=== PATIENT | male | born 1965 | race Caucasian/White ===

== ENCOUNTER 2024-05-24 08:50 | Outpatient (REF) | payer BC, SELFPAY ==
[2024-05-24 13:20] LABS: MANUAL DIFF FLAG NO
[2024-05-24 13:28] LABS: Basophils Percent Auto 0.4 % (0-2); Eosinophils Absolute Auto 0.1 X10*3/uL (0.0-0.4); Eosinophils Percent Auto 1.6 % (0-4); Hematocrit 45.2 % (42.0-52.0); Hemoglobin 14.2 g/dl (14.0-18.0); Imm Gran Abs Auto 0.02 X10*3/uL (0.00-0.03); Imm Gran Pct Auto 0.2 % (0.0-0.4); Lymphocytes Absolute Auto 1.8 X10*3/uL (1.2-4.9); Lymphocytes Percent Auto 22.2 % (20-40); Mean Corpuscular HGB Conc 31.4 g/dl (31.0-36.0); Mean Corpuscular Hemoglobin 28.4 pg (27.0-33.0); Mean Corpuscular Volume 90.4 fL (80.0-98.0); Mean Platelet Volume 11.4 fL (9.4-12.4); Monocytes Absolute Auto 0.5 X10*3/uL (0.1-1.2); Monocytes Percent Auto 6.4 % (2-11); Neutrophils Absolute Auto 5.6 x10*3/uL (2.0-8.3); Neutrophils Percent Auto 69.2 % (45-73); Platelet Count 209 X10*3/uL (160-400); Red Cell Distribution Width 13.4 % (11.0-16.0)
[2024-05-24 13:51] LABS: Appearance Urine Clear; Color Urine Yellow; Glucose Urine UA Negative (Negative); Leukocyte Esterase Urine Negative (Negative); Nitrite Urine Negative (Negative); Specific Gravity - Urine 1.015 (1.005-1.025); Urine Blood Negative (Negative); Urine Ketones Negative (Negative); Urine Protein Negative (Neg-Trace)
[2024-05-24 13:54] LABS: Bacteria Urine None Seen (None Seen); Hyaline Casts Urine 0-2 /LPF (0-2); RBC Urine 0-2 /HPF (0-2); Squamous Epithelial Cell Urine 0-2 /HPF (0-2); WBC Urine 0-5 /HPF (0-5)
[2024-05-24 13:57] LABS: Alanine Aminotransferase 40 U/L (0-40); Albumin Level 4.1 g/dL (3.5-5.0); Alkaline Phosphatase 127 U/L (39-117); Anion Gap 10 (12-20); Aspartate Amino Transferase 33 U/L (5-37); Bilirubin Total 0.3 mg/dL (0.0-1.0); Blood Urea Nitrogen 19 mg/dL (9-16); Calcium 9.8 mg/dL (8.4-10.2); Carbon Dioxide 28 mmol/L (22-29); Chloride 106 mmol/L (96-108); Cholesterol 168 mg/dL (<200); Estimated Glomerular Filt Rate > 60; Glucose Random 100 mg/dL (60-115); HDL Cholesterol 41 mg/dL (>40); LDL Cholesterol Calculated 117 mg/dL (<100); Potassium 5.1 mmol/L (3.3-5.1); Sodium 139 mmol/L (135-145); Total Protein 7.4 g/dL (6.5-8.0); Triglycerides 54 mg/dL (<150)
== END 2024-05-24 08:51 | disposition home or self-care (01) ==
LOC: HO.HMGCLDS 08:50
PROVIDERS: PCP Internal Medicine; Visit Provider Internal Medicine
DX: Z00.00 Encounter for general adult medical examination without abnormal findings (principal); M72.2 Plantar fascial fibromatosis; F17.210 Nicotine dependence, cigarettes, uncomplicated; Z12.5 Encounter for screening for malignant neoplasm of prostate
CPT/HCPCS: 36415; 80053; 80061; 81001; 84153; 85025; 96127

== ENCOUNTER 2024-05-24 08:50 | Outpatient (AMB) | payer BC, SELFPAY ==
--- NOTE | 2024-05-24 09:02 | A.OFFPC_ITS ---
Vital Signs 05/24/24 09:03 Height 6 ft 2 in Weight 214 lb BMI 27.5 BP 132/80 Blood Pressure Location Lt brachial Position Sitting Pulse 80 Pulse Source Pulse Oximeter Temp 98.3 F Temp Source Oral Pulse Oximetry (%) 97 Intake Visit Reasons: New patient visit Intake Note: pt is here to est care as a new patient. Soft Work Cigar Machine Operator Required: No Accompanied by: Self / Same As Patient Allergies No Known Allergies Allergy (Verified 05/24/24 09:03) Medication List - Last Reconciled 05/24/24 by Ana Lilia Montoya MD buprenorphine-naloxone 8-2 mg film sublingual DAILY Tobacco use date assessed: 05/24/24 Dental Screening Dental Screen Date: 05/24/24 Did you have a dental visit in the last 12 months?: Yes Did you have a dental problem in the last 6 months where you did not have access to dental care?: No Was dental information given to patient?: Patient has dentist HPI New patient visit HPI Details Pt presents for ADMINISTRATION MANAGER PE. Pt c/o left foot chronic plantar fasciitis since January 2024. . Patient was seen by mh teacher had cortisone injection took meloxicam which caused stomach upset. Patient complains clear discharge from rectum after bowel movement. He denies constipation, diarrhea, hematochezia, melena. patient never had colonoscopy. he had negative Cologuard 2 years ago [facility] Surgical History S/P hernia repair History of surgery on lower extremity Family History Mother No problems noted. Father No problems noted. Social History Housing: House Alcohol intake: current Alcohol intake frequency: holidays/special occasions only Patient Tobacco Use Status: Current everyday Tobacco user Cigarettes Per Day: 10 Years Smoked: 2015 Packs per year/per ci,007.50 e-Cigarette/Vaping Use: Never Used Use of substances other than those prescribed or required for medical reasons: No service: No Current occupational status: employed Current occupation: machinest Current occupational exposures/hazards: No Cognitive needs: No Hearing needs: No Vision needs: Yes Questionnaire PHQ-9 Over the last 2 weeks, how often have you been bothered by any of the following problems? 1. Little interest or pleasure in doing things: not at all 2. Feeling down, depressed, or hopeless: not at all 3. Trouble falling or staying asleep, or sleeping too much: not at all 4. Feeling tired or having little energy: not at all 5. Poor appetite or overeating: not at all 6. Feeling bad about yourself - or that you are a failure or have let yourself or your family down: not at all 7. Trouble concentrating on things, such as reading the newspaper or watching television: not at all 8. Moving or speaking so slowly that other people could have noticed. Or the opposite - being so fidgety or restless that you have been moving around a lot more than usual: not at all 9. Thoughts that you would be better off or of hurting yourself in some way: not at all Total score: 0 Depression Screening Interpretation: Negative Depression Screening Done: Yes 60259 - PHQ-9 Billing: Yes Source: Developed by Drs. Tomy Alejandro, Liza Grove, Priyank Stevenson and colleagues, with an educational brennan from [employer] Thrive Questionnaire Date Thrive assessed: 05/24/24 I am a: Patient What is your living situation today?: I have a steady place to live Within the past 12 months, did the food you bought not last and you didn't have the money to get more?: Never true Within the past 12 months, did you worry whether your food would run out before you got money to buy more?: Never true Do you have trouble paying for medicines?: No Do you have trouble getting transportation to medical appointments?: No Do you have trouble paying your heating and electricity bill?: No Do you have trouble taking care of your child, family member or friend?: No Do you have trouble with day-to-day activities such as bathing, preparing meals, shopping, managing finances, etc.?: No Are you currently unemployed and looking for a job?: No Are you interested in more education?: No Please select the resources that you would like help with: None Currently or been in a relationship where the following occur: No concerns reported THRIVE Score: 0 AUDIT C Alcohol Use Questionnaire (AUDIT-C) 1. How often do you have a drink containing alcohol?: Monthly or less 2. How many drinks containing alcohol do you have on a typical day when you are drinking?: 1 or 2 3. How often do you have six or more drinks on one occasion?: Never Total Score: 1 Score Reviewed/Action Taken: Yes LISSY-7 AMB Questionnaire LISSY-7 Date LISSY - 7 assessed: 05/24/24 Feeling nervous, anxious, or on edge: 0 = Not at all Not being able to stop or control worryin = Not at all Worrying too much about different things: 0 = Not at all Trouble relaxin = Not at all Being so restless that it is hard to sit still: 0 = Not at all Becoming easily annoyed or irritable: 0 = Not at all Feeling afraid as if something awful might happen: 0 = Not at all Total LISSY-7 score (0-4 normal; 5-9 mild; 10-14 moderate; 15-21 severe): 0 Source: Developed by Drs. Tomy Alejandro, Liza Grove, Priyank Stevenson and colleagues, with an educational brennan from [employer] LISSY-7 Assessment Billing LISSY-7 Assessment Tool: LISSY-7 Assessment 16570 Review of Systems Const All systems reviewed & are unremarkable except as noted in HPI and below Eyes Reports no additional complaints ENT Reports no additional complaints Card Reports no additional complaints Resp Reports no additional complaints GI Reports no additional complaints Physical exam (Primary Care) Vital Signs: Last Vital Signs Temp 98.3 F 05/24/24 09:03 Pulse 80 05/24/24 09:03 BP 132/80 05/24/24 09:03 Pulse Ox 97 05/24/24 09:03 BMI result Body Mass Index 27.5 Tobacco/Smoking Status: Tobacco use Status Tobacco use date assessed 05/24/24 05/24/24 09:14 Patient Tobacco Use Status Current everyday Tobacco 05/24/24 09:14 e-Cigarette/Vaping Use Never Used 05/24/24 09:14 PHQ-9: PHQ-9 Score PHQ-9: Total score 0 05/24/24 09:14 Depression Screening Interpretation: Negative Thrive Assessment: Date of Thrive Assessment Date Thrive assessed 05/24/24 05/24/24 09:14 Currently or been in a relationship where the following occur: No concerns reported Const General: no acute distress HENMT Head: Yes normal to inspection Ears: hearing grossly normal bilaterally Face and sinus: Yes normal facial exam Mouth: Normal oral and palatal mucosa present Throat: Yes posterior oropharynx normal Eyes General: appearance normal, both eyes and all related structures Neck Neck: Yes no lymphadenopathy and Yes supple Resp Effort & Inspection: normal respiratory effort Auscultation: clear to auscultation bilaterally Cardio Rhythm: regular rhythm Heart sounds: S1 normal heart sound present and S2 normal heart sound present GI Inspection: Yes normal to inspection Palpation (GI): Soft to palpation Percussion: Yes normal to percussion Auscultation: normal bowel sounds Coding Level of Care Code New Pt Prev Care 40-64y(45617) Diagnoses Annual physical exam Z. Plantar fascia syndrome M72.2 Smoker F17.200 Additional Codes LISSY-7 Assessment Billing - LISSY-7 Assessment Tool: LISSY-7 Assessment 06728 ([id number]) PHQ-9 - 58614 - PHQ-9 Billing: Yes ([id number]) Assessment & Plan Assessment & Plan (1) Annual physical exam: Code(s): Z00. - Encounter for general adult medical examination without abnormal findings Category: Medical Plan: Well-balanced diet regular physical activity discussed with the patient he will have a fasting blood work today. Patient will be referred to GI for colonoscopy. He was advised to increase fiber intake to prevent constipation (2) Plantar fascia syndrome: Comment: left foot Code(s): M72.2 - Plantar fascial fibromatosis Category: Medical Plan: Patient was advised to continue stretching exercises and wear a shoe insert, follow-up with mh teacher as needed (3) Smoker: Comment: Half a pack-a-day, trying to quit Code(s): F17.200 - Nicotine dependence, unspecified, uncomplicated Category: Social Hx Plan: Tobacco quitting discussed with the patient Orders: Orders Lipid Panel Today Z00.00 - Encounter for general adult medical examination without abnormal findings UA w Microscopic Today Z00.00 - Encounter for general adult medical examination without abnormal findings Comprehensive Met. Panel Today Z00.00 - Encounter for general adult medical examination without abnormal findings Complete Blood Count Auto Diff Today Z00.00 - Encounter for general adult medical examination without abnormal findings PSA,Total (Free>4and<10) Today Z00.00 - Encounter for general adult medical examination without abnormal findings
[2024-05-24 09:03] VITALS: BP 132/80; PULSE 80; TEMP 36.8; O2SAT 97; BMI 27.5
--- OUTSIDE RECORDS SUMMARY | 2024-05-24 09:12 | XMS_ITS ---
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 [address] [place] [address] * true * Date:? Generated for Jeannette sandoval/Christiano/eTransmitting on:?05/24/2024 09:12 AM EST
--- OUTSIDE RECORDS SUMMARY | 2024-05-24 09:12 | XMS_ITS ---
Author Organization [facility] Address [address] [place] [address] Care Team Providers Care Punching Machine Operator Name Role Phone Nell Domínguez Primary Care Provider Clifton Garcia Unavailable [phone] REASON FOR VISIT OVER THE ROAD DRIVER Encounters Encounter Location Date Provider Diagnosis [facility] [address] [place] [address] 11/03/2023 Clifton Quijano Plan Of Treatment No Information Progress Notes * Nic HEATONOB:1965 ( 58 yo M)Acc No.[id number]:11/03/2023 Patient:?Camilo eHaton :1965???Age:58 Y???Sex:Male Address:[address] [place] [address] [place] [address] * true * Date:? Generated for Jeannette sandoval/Christiano/eTransmitting on:?05/24/2024 09:12 AM EST
--- OUTSIDE RECORDS SUMMARY | 2024-05-24 09:12 | XMS_ITS | Patient Health Record ---
Author Organization [facility] Address [address] [place] [address] Care Team Providers Care Ceramics Machine Operator Name Role Phone Nell Domínguez Primary Care Provider Clifton Garcia Unavailable [phone] Reason For Referral No Information Encounters Encounter Location Date Provider Diagnosis [facility] [address] [place] [address] 11/03/2023 Clifton Quijano [facility] [address] [place] [address] 12/15/2023 Clifton Quijano Plan Of Treatment No Information Insurance Providers Payer Name Payer Address Payer Phone Subscriber Number Group Number Insured Name Patient Relationship to Insured Coverage Start Date Coverage End Date [facility] [employer] [address] [place] [address] [phone] [id number] Cmailo Steele Self - patient is the insured
--- OUTSIDE RECORDS SUMMARY | 2024-05-24 09:13 | XMS_ITS ---
Author Organization [facility] Address [address] [place] [address] Care Team Providers Care Physiognomist Name Role Phone Nell Domínguez Primary Care Provider Clifton Garcia Unavailable [phone] Encounters Encounter Location Date Provider Diagnosis [facility] [address] [place] [address] 02/20/2024 Clifton Quijano Plan Of Treatment No Information Progress Notes * HEATONMarty TONGumeshnDOB:1965 ( 58 yo M)Acc No.[id number]:02/20/2024 Progress Notes Patient:?Camilo HEATON Provider:?Clifton Quijano DPM :1965???Age:58 Y???Sex:Male Herbert e:02/20/2024 Address:[address] [place] [address] [address] [facility] Pcp:Nell Domínguez Subjective: * Chief Complaints: * ??? * Medical History:? Objective: * Vitals:? Assessment: Plan: * Treatment: * Images: * The named appointment provid er may or may not be the originator of this progress note, and it is not deemed complete until electronically signed by the appointment provider. Sign off status: Pending * Provider:?Clifton Quijano DPM Date:?2023 Generated for Jeannette sandoval/Christiano/Bel on:?05/24/2024 09:12 AM EST
== END 2024-05-24 10:30 | disposition home or self-care (01) ==
PROVIDERS: PCP Internal Medicine; Visit Provider Internal Medicine
DX: Z00.00 Encounter for general adult medical examination without abnormal findings (principal); M72.2 Plantar fascial fibromatosis; F17.200 Nicotine dependence, unspecified, uncomplicated

== ENCOUNTER 2024-06-08 08:04 | Outpatient (REF) | payer BC, SELFPAY ==
[2024-06-08 12:29] LABS: Alanine Aminotransferase 54 U/L (0-40); Albumin Level 4.1 g/dL (3.5-5.0); Alkaline Phosphatase 110 U/L (39-117); Aspartate Amino Transferase 32 U/L (5-37); Bilirubin Direct 0.2 mg/dL (0.0-0.5); Bilirubin Total 0.4 mg/dL (0.0-1.0); Gamma Glutamyl Transpeptidase 42 U/L (11-51); Total Protein 7.2 g/dL (6.5-8.0)
[2024-06-08 12:48] LABS: HBS Num1 0.97 mIU/mL (0-7.99); HBc Num1 0.05 S/CO (0.00-0.79); HBsAGNum1 0.39 S/CO (0.00-0.99); Hepatitis B Core Antibody Nonreactive (Nonreactive); Hepatitis B Surface Antigen Negative (Negative); ~HepC Num1 0.15 S/CO (0.00-0.79); ~Hepatitis B Surface Antibody NONREACTIVE (Nonreactive); ~Hepatitis C Antibody Nonreactive (Nonreactive)
== END 2024-06-08 08:05 | disposition home or self-care (01) ==
LOC: HO.HMGCLDS 08:04
PROVIDERS: PCP Internal Medicine; Visit Provider Internal Medicine
DX: R79.89 Other specified abnormal findings of blood chemistry (principal)
CPT/HCPCS: 36415; 80076; 82977; 86704; 86706; 86803; 87340

== ENCOUNTER 2024-09-27 15:05 | Outpatient (AMB) | payer BC, SELFPAY ==
--- NOTE | 2024-09-27 15:10 | A.OFFVIS_ITS ---
Vital Signs 09/27/24 15:12 Height 6 ft 2 in Weight 207 lb 3.752 oz BMI 26.6 BP 146/87 H Blood Pressure Location Lt brachial Position Sitting Pulse 76 Intake Visit Reasons: [place] screening. R/S x1 Intake Note: Camilo presents in the office as a new patient for colonoscopy screening. CC: issue with his stomach and states that he has been having some constipation. States that when he passes gas he was a phlegm like substance that comes out. Pain where he has his operation in the umibilical region. [employer] Required: No Allergies No Known Allergies Allergy (Verified 09/27/24 15:12) Medication List - Last Reconciled 09/27/24 by Lashell Thakur CNP bisacodyl 5 mg PO ONCE 1 day buprenorphine-naloxone 4-1 mg 1 film sublingual DAILY polyethylene glycol 3350 (Miralax) 238 grams PO ONCE HPI HPI [place] screening. R/S x1: Details: Patient is a 58-year-old male with PMH of nicotine dependence, open opioid use disorder on Suboxone managed by [facility]. Referred by PCP for pre colonosco py screening. This will be Camilo's first colonoscopy, he had a negative cologuard two years ago per PCP note. Camilo reports experiencing abdominal pain around the site of a hernia repair surgery from 4-5 years ago. The pain has recently become tender, noticed a few months ago. He is also experiencing constipation, which he has been trying to manage with Metamucil, without consistent success. Camilo describes a change in bowel habits over the last 6-7 months, with a pattern of needing to pass gas, which is often wet and foul-smelling, followed by fragmented bowel movements. Camilo also reports rare instances of blood in stools, mainly noticed while wiping and describes the blood as normal blood red in color, possibly due to pushing. He denies nausea, vomiting, heartburn, or trouble swallowing. Camilo has noted a slight unexplained weight loss of around 7 pounds over the last four months, possibly attributed to the hot weather at work. Additionally, he had elevated liver function tests in recent months, which normalized upon rechecking. Patient denies: fever/chills, appetite changes, pyrosis, regurgitation or dysphasia. Social History: Diet: Eats yogurt in the morning, sandwich for lunch, and sensible dinners at home. Previously tried probiotics. Tobacco: Smokes half a pack per day Alcohol: Does not consume alcohol. Drug Use: Does not use recreational drugs but grows marijuana. Rx'd Suboxone. 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 -family hx as below -denies personal hx of CA -denies significant cardiopulmonary history -tolerated anesthesia in the past without difficulty. [facility] Medical History (Updated 09/27/24 @ 16:10 by Lashell Thakur CNP) Change in stool habits Colon cancer screening Surgical History S/P hernia repair History of surgery on lower extremity Family History Mother No problems noted. Father No problems noted. Social History Housing: House Alcohol intake: current Alcohol intake frequency: holidays/special occasions only Patient Tobacco Use Status: Current everyday Tobacco user Cigarettes Per Day: 10 Years Smoked: 2014 e-Cigarette/Vaping Use: Never Used service: No Current occupational status: employed Current occupation: machinest Current occupational exposures/hazards: No Cognitive needs: No Hearing needs: No Vision needs: Yes Review of Systems Const Reports as per HPI ENT Reports as per HPI Card Reports as per HPI Resp Reports as per HPI GI Reports as per HPI Reports as per HPI Physical Exam Vital Signs: Last Vital Signs Pulse 76 09/27/24 15:12 BP 146/87 H 09/27/24 15:12 BMI result Body Mass Index 26.6 Const General: healthy appearing, no acute distress and well developed Nutritional Appearance: well nourished Orientation/consciousness: patient oriented x3 HEENT Head: Yes normal to inspection, Yes normocephalic and Yes atraumatic Face and sinus: Yes normal facial exam Eyes General: appearance normal, both eyes and all related structures Neck Neck: Yes normal visual inspection Resp Effort & Inspection: normal respiratory effort, able to speak in complete sentences, no tracheal deviation and symmetric chest movement Cardio Jugular venous distension: no JVD Neuro General: patient oriented x3 Gait exam (Neuro): Normal gait present Psych Appearance: grossly normal Mental Status: mental status grossly normal Speech and movement: Normal speech and movement present Affect: normal affect Attitude: cooperative Thought process: Normal thought process present Thought content: Normal thought content present Insight: Good insight present (Psych) Judgement: Good judgement present (Psych) Assessment & Plan Assessment & Plan (1) Colon cancer screening: Code(s): Z12.11 - Encounter for screening for malignant neoplasm of colon Category: Medical Plan: Negative Cologuard 2 years ago. Intermittent rectal bleeding and recent stool change. Plan for index screening colonoscopy Medications: -prescriptions for laxative tablets and MiraLax sent to pharmacy; instructions for Gatorade purchase and clear liquid diet given.. Patient educated on scheduling process, procedure preparation, including avoiding certain foods and ensuring clear liquid intake Advised on necessity for ride post-procedure due to sedation. (2) Change in stool habits: Code(s): R19.4 - Change in bowel habit Category: Medical Plan: Chronic constipation with inadequate response to dietary fiber supplements and recent changes in bowel habits. 3.2% Wt loss since 05/2024. Additional Tests: Stool testing to rule out inflammatory causes. Will check thyroid levels. Monitor weight Medications: -Discontinue Metamucil -Start Miralax oral daily and a stool softener (Docusate) at bedtime as needed. Patient to use [id number]-[id number] supply his has on hand Reinforced lifestyle modifications to promote regularity: -higher fiber diet, examples provided -adequate hydration with water -150 minutes of moderate intensity exercise per week (3) Elevated LFTs: Code(s): R79.89 - Other specified abnormal findings of blood chemistry Category: Medical Plan: Slightly elevated LFTs on 06/2024 labs Additional Tests: Repeat fasting labs Plan Follow-up after colonoscopy or sooner as needed Time: I spent a total of 30 minutes on the date of encounter which includes: Preparing to see the patient (reviewed previous documentation, test results and medical history) Performing a medically appropriate exam and/or evaluation Ordering medications, tests, and procedures Documenting clinical information in the health record Orders: Orders Fecal Fat Qualitative 09/27/24 Z12.11 - Encounter for screening for malignant neoplasm of colon C Reactive Protein 09/27/24 R19.4 - Change in bowel habit Calprotectin, Fecal 09/27/24 R19.4 - Change in bowel habit Comprehensive Lloyd. Panel Fast 06/27/25 R79.89 - Other specified abnormal findings of blood chemistry TSH reflex Free T4 09/27/24 R19.4 - Change in bowel habit Medications: New bisacodyl Take four tablets once for 1 day per colonoscopy instructions 5 mg PO ONCE 4 tabs 0RF 1 day polyethylene glycol 3350 (Miralax) per colonoscopy prep instructions 238 grams PO ONCE 238 grams 0RF Coding Level of Care Code New Pt New Pt Level 3 (29393) Patient Type New Diagnoses Colon cancer screening Z12.11 Change in stool habits R19.4 Elevated LFTs R79.89
[2024-09-27 15:12] VITALS: BP 146/87; PULSE 76; BMI 26.6
--- OUTSIDE RECORDS SUMMARY | 2024-09-27 15:14 | XMS_ITS | Patient Health Record ---
Author Organization [facility] Address [address] [place] [address] Care Team Providers Care Drafter Landscape Name Role Phone Nell Domínguez Primary Care Provider Clifton Garcia Unavailable [phone] Reason For Referral No Information Encounters Encounter Location Date Provider Diagnosis [facility] [address] [place] [address] 11/03/2023 Clifton Quijano [facility] [address] [place] [address] 12/15/2023 Clifton Quijano Plan Of Treatment No Information Insurance Providers Payer Name Payer Address Payer Phone Subscriber Number Group Number Insured Name Patient Relationship to Insured Coverage Start Date Coverage End Date [facility] All Others [address] [place] [address] [id number] 1 Camilo Steele Self - patient is the insured
== END 2024-09-27 16:31 | disposition home or self-care (01) ==
LOC: HO.HGI 15:06
PROVIDERS: PCP Internal Medicine; Visit Provider Nurse Practitioner Family
DX: Z01.818 Encounter for other preprocedural examination (principal); Z12.11 Encounter for screening for malignant neoplasm of colon; R19.4 Change in bowel habit; R79.89 Other specified abnormal findings of blood chemistry
CPT/HCPCS: S0285

== ENCOUNTER 2024-10-12 07:45 | Outpatient (REF) | payer BC, SELFPAY ==
[2024-10-12 12:02] LABS: Alanine Aminotransferase 27 U/L (0-40); Albumin Level 4.2 g/dL (3.5-5.0); Alkaline Phosphatase 97 U/L (39-117); Anion Gap 9 (12-20); Aspartate Amino Transferase 26 U/L (5-37); Blood Urea Nitrogen 17 mg/dL (9-16); Calcium 9.3 mg/dL (8.4-10.2); Carbon Dioxide 28 mmol/L (22-29); Chloride 105 mmol/L (96-108); Estimated Glomerular Filt Rate > 60; Potassium 5.3 mmol/L (3.3-5.1); Sodium 137 mmol/L (135-145); Total Protein 6.6 g/dL (6.5-8.0)
== END 2024-10-12 07:46 | disposition home or self-care (01) ==
LOC: HO.HMGCLDS 07:45
PROVIDERS: PCP Internal Medicine; Visit Provider Nurse Practitioner Family
DX: R79.89 Other specified abnormal findings of blood chemistry (principal); R19.4 Change in bowel habit
CPT/HCPCS: 36415; 80053; 84443; 86140

== ENCOUNTER 2024-10-15 04:15 | Outpatient (REF) | payer BC, SELFPAY ==
--- OUTSIDE RECORDS SUMMARY | 2024-10-15 16:14 | XMS_ITS | Patient Health Record ---
Author Organization [facility] Address [address] [place] [address] Care Team Providers Care Clinical Research Monitor Name Role Phone Nell Domínguez Primary Care Provider Clifton Garcia Unavailable [phone] Reason For Referral No Information Encounters Encounter Location Date Provider Diagnosis [facility] [address] [place] [address] 11/03/2023 Clifton Quijano [facility] [address] [place] [address] 12/15/2023 Clifton Quijano Plan Of Treatment No Information Insurance Providers Payer Name Payer Address Payer Phone Subscriber Number Group Number Insured Name Patient Relationship to Insured Coverage Start Date Coverage End Date [facility] All Others [address] [place] [address] [phone] [id number] 1 Camilo Steele Self - patient is the insured
[2024-10-20 18:43] LABS: Calprotectin, Fecal 666 mcg/g
== END 2024-10-15 04:16 | disposition home or self-care (01) ==
LOC: HO.HMGCLNP 04:15
PROVIDERS: PCP Internal Medicine; Visit Provider Nurse Practitioner Family
DX: Z12.11 Encounter for screening for malignant neoplasm of colon (principal); R19.4 Change in bowel habit
CPT/HCPCS: 82705; 83993

== ENCOUNTER 2024-11-16 06:42 | Outpatient (REF) | payer BC, SELFPAY ==
[2024-11-16 11:52] LABS: Anion Gap 12 (12-20); Blood Urea Nitrogen 17 mg/dL (9-16); Calcium 9.2 mg/dL (8.4-10.2); Carbon Dioxide 26 mmol/L (22-29); Chloride 106 mmol/L (96-108); Estimated Glomerular Filt Rate > 60; Potassium 5.1 mmol/L (3.3-5.1); Sodium 139 mmol/L (135-145)
== END 2024-11-16 06:43 | disposition home or self-care (01) ==
LOC: HO.HMGCLDS 06:42
PROVIDERS: PCP Internal Medicine; Visit Provider Nurse Practitioner Family
DX: Z01.89 Encounter for other specified special examinations (principal)
CPT/HCPCS: 36415; 80048

== ENCOUNTER 2024-12-03 11:41 | Outpatient (REF) | payer BC, SELFPAY ==
--- NOTE | ~2024-12-03 | CT_ITS ---
CLINICAL HISTORY: R19.5 - Other fecal abnormalities --- Additional Notes or Special Instructions: eval for evidence of IBDIntermittent rectal bleeding and stool change w chronic constipation, evaluate for irritable bowel disease Exam: CT enterography with IV contrast Comparison: None Findings: Mild bibasilar dependent atelectasis. Stomach, small bowel and appendix are unremarkable. Diffuse edematous mural thickening with laminated enhancement of the rectum, mesorectal fatty stranding, several prominent spherical mesorectal lymph nodes up to 8 mm, small amount of liquid stool in the rectum, no upstream bowel dilatation to suggest obstruction. Mild diverticulosis sigmoid, no acute diverticulitis. Prominent inspissated stool from cecum to the descending colon, no mural thickenin. Scattered too small to characterize hypodensities in the liver, patent hepatic and portal veins. Punctate calcification of the gallbladder anterior wall. No convincing cholelithiasis, no acute inflammation. Spleen, pancreas, adrenal glands, kidneys, ureters, bladder, reproductive organs are unremarkable. Too small to characterize hypodensities of the right kidney. Mild atherosclerotic disease. Nonaneurysmal aorta. No bulky lymph nodes. Multiple shotty retroperitoneal lymph nodes, likely reactive. No ascites or pneumoperitoneum. Presacral edema. Left proximal femur old fracture status post ORIF, no acute hardware complication. Mild degenerative changes of the lumbar spine and hips. Multilevel vertebral hemangiomas L3, L4, L5, L1 and T10. Osseous demineralization. Impression: 1. Diffuse rectal wall thickening, mesorectal fatty stranding and prominent mesorectal lymph nodes, most likely acute proctitis, could be infectious or inflammatory, recommend to ensure resolution and colonoscopy to exclude underlying lesion. 2. Additional ancillary findings. This document has been electronically signed by: Nerissa Chowdary MD on 12/04/2024 15:07:19
[2024-12-03] MEDS: iohexoL 350 MG/ML 100 ML INFUS..BTL IV (13:23)
[2024-12-03] MEDS: Sorbitol/Mannit/Xanth Imaging 500 ML LIQUID 1500 ML PO (13:23)
== END 2024-12-03 11:42 | disposition home or self-care (01) ==
LOC: HO.CT 11:41
PROVIDERS: PCP Internal Medicine; Visit Provider Nurse Practitioner Family
DX: R19.5 Other fecal abnormalities (principal)
CPT/HCPCS: 74177; Q9967

== ENCOUNTER → 2024-12-03 11:42 | Outpatient (BNV) | payer BC, SELFPAY | PROVIDERS: PCP Internal Medicine; Visit Provider Radiology Diagnostic Radiology | DX: R19.5 Other fecal abnormalities (principal); K62.89 Other specified diseases of anus and rectum; R59.0 Localized enlarged lymph nodes | CPT/HCPCS: 74177 ==

== ENCOUNTER 2024-12-07 10:00 | Outpatient (REF) | payer BC, SELFPAY ==
--- OUTSIDE RECORDS SUMMARY | 2024-02-20 09:00 | XMS_ITS ---
Author Organization [facility] Address [address] [place] [address] Care Team Providers Care Atg Architect Name Role Phone Nell Domínguez Primary Care Provider Unavailabl Clifton Brasher Unavailable [phone] Encounters Encounter Location Date Provider Diagnosis [address] [address] 02/20/2024 Clifton Quijano Plan Of Treatment No Information Progress Notes * Tre HEATONZanaOB:1965 ( 59 yo M)Acc No.[id number]:02/20/2024 Progress Notes Patient: Camilo OLIVARES Provider: Garrick Quijano DPM :1965 A ge:58 Y S ex:Male Date:02/20/2024 Address:[address], [place] Pcp:Nell Domínguez Subjective: * Chief Complaints: * [...] 04/21/2023 Generated for Jeannette sandoval/Christiano/Pilaritting on: 0 12/07/2024 11:13 AM EDT
--- OUTSIDE RECORDS SUMMARY | 2024-12-07 11:14 | XMS_ITS | Patient Health Record ---
Author Organization [facility] Address [address] [place] [address] Care Team Providers Care Base Wad Operator Adjuster Name Role Phone Nell Domínguez Primary Care Provider Clifton Garcia Unavailable [phone] Reason For Referral No Information Encounters Encounter Location Date Provider Diagnosis [facility] [address] [place] [address] 12/15/2023 Clifton Quijano Plan Of Treatment No Information Insurance Providers Payer Name Payer Address Payer Phone Subscriber Number Group Number Insured Name Patient Relationship to Insured Coverage Start Date Coverage End Date [facility] [address] [place] [address] [phone] [id number] 1 Camilo Steele Self - patient is the insured
[2024-12-07 21:16] LABS: CDiff Gene PCR NEGATIVE (Negative)
[2024-12-08 07:03] LABS: E. coli EAEC Not Detected (Not Detect.); E. coli EPEC Not Detected (Not Detect.); E. coli ETEC Not Detected (Not Detect.); E. coli STEC Not Detected (Not Detect.); Shigella sp./EIEC Not Detected (Not Detect.)
== END 2024-12-07 10:01 | disposition home or self-care (01) ==
LOC: HO.HMGCLNP 10:00
PROVIDERS: PCP Internal Medicine; Visit Provider Nurse Practitioner Family
DX: R19.5 Other fecal abnormalities (principal)
CPT/HCPCS: 82705; 87177; 87209; 87493; 87507

== ENCOUNTER 2025-01-02 08:18 | Day surgery (SDC) | payer BC, SELFPAY ==
--- OUTSIDE RECORDS SUMMARY | 2024-02-20 09:00 | XMS_ITS ---
Author Organization [facility] Address [address] [place] [address] Care Team Providers Care Sack Lifter Name Role Phone Nell Domínguez Primary Care Provider Unavailabl Clifton Brasher Unavailable [phone] Encounters Encounter Location Date Provider Diagnosis [address] [address] 02/20/2024 Clifton Quijano Plan Of Treatment No Information Progress Notes * Tre HEATONZanaOB:1965 ( 59 yo M)Acc No.[id number]:02/20/2024 Progress Notes Patient: Camilo OLIVARES Provider: Garrick Quijano DPM :1965 A ge:58 Y S ex:Male Date:02/20/2024 Address:[address], [place] Pcp:Nell Domínguez Subjective: * Chief Complaints: * * Medical History: Objective: * Vitals: Assessment: Plan: * Treatment: * Images: * The named appointment provid er may or may not be the originator of this progress note, and it is not deemed complete until electronically signed by the appointment provider. Sign off status: Pending * Provider: Garrick Quijano DPM Date: 04/21/2023 Generated for Jeannette sandoval/Christiano/Pilaritting on: 0 12/24/2024 07:03 AM EDT
--- OUTSIDE RECORDS SUMMARY | 2024-12-24 07:03 | XMS_ITS | Patient Health Record ---
Author Organization [facility] Address [address] [place] [address] Care Team Providers Care Cylinder Press Feeder Name Role Phone Nell Domínguez Primary Care Provider Clifton Garcia Unavailable [phone] Reason For Referral No Information Plan Of Treatment No Information Insurance Providers Payer Name Payer Address Payer Phone Subscriber Number Group Number Insured Name Patient Relationship to Insured Coverage Start Date Coverage End Date [facility] All Others [address] [place] [address] [phone] [id number] 1 Camilo Steele Self - patient is the insured
[2024-12-31 15:07] VITALS: BMI 26.6
--- NOTE | 2025-01-01 11:57 | P.CONAN_ITS ---
Documented by User: Rhina Alvarez NP 01/01/25 11:57 HPI - Anesthesia Eval Consult details Narrative: 59yo M for Colonoscopy Suboxone daily - 10 years in recovery [facility] Active Problems Active Problems: All Active Problems Laboratory procedure (Acute) Pre-procedure lab exam (Acute) Elevated LFTs (Acute) Smoker (Acute) Plantar fascia syndrome (Acute) Annual physical exam (Acute) Encounter for monitoring Suboxone maintenance therapy (Acute) Elevated fecal calprotectin (Acute) Change in stool habits (Acute) Colon cancer screening (Acute) Past Medical History Medical History Plantar fascia syndrome Elevated fecal calprotectin Change in stool habits Colon cancer screening Family History Family History Mother No problems noted. Father No problems noted. Surgical History Surgical History S/P hernia repair History of surgery on lower extremity Social History Social History Housing: House Are you a primary college and career counselor to a significant other at home: No Do you presently have visiting nurse or other home services: No Alcohol intake: current Alcohol intake frequency: holidays/special occasions only Patient Tobacco Use Status: Current everyday Tobacco user Tobacco use type: Cigarette Cigarettes Per Day: 10 Years Smoked: 2015 Smoked in Last 30 Days: Yes e-Cigarette/Vaping Use: Never Used Patient Interested in Nicotine Replacement: No Have you been hit, kicked, punched, or otherwise hurt by someone within the past year? If so, by whom?: No Are you DNR?: No Advance Directives: No Advance Directives Information Provided: Yes Poor oral hygiene: No service: No Current occupational status: employed Current occupation: machinest Current occupational exposures/hazards: No Cognitive needs: No Hearing needs: No Vision needs: Yes Meds Allergies Allergy/AdvReac Type Severity Reaction Status Date / Time No Known Allergies Allergy Verified 01/02/25 09:10 Home Medications ?Medication ?Instructions ?Recorded ?Confirmed ?Last Taken ?Type buprenorphine 4 mg-naloxone 1 mg 1 film sublingual BALA LY 09/27/24 12/31/24 01/02/25 History sublingual film Exam Height,Weight and Vital Signs: Height 6 ft 2 in Weight 94 kg Assessment and Plan Assessment Anesthesia Assessment: Chart Reviewed Documented by User: Anne Lynch MD 01/02/25 09:27 [facility] Past Medical History Medical History Plantar fascia syndrome Elevated fecal calprotectin Change in stool habits Colon cancer screening Family History Family History (Reviewed 01/02/25 @ 09: by Anne Lynch MD) Mother No problems noted. Father No problems noted. Surgical History Surgical History S/P hernia repair History of surgery on lower extremity History of Problems with Anesthesia: No Social History Social History Housing: House Are you a primary college and career counselor to a significant other at home: No Do you presently have visiting nurse or other home services: No Alcohol intake: current Alcohol intake frequency: holidays/special occasions only Patient Tobacco Use Status: Current everyday Tobacco user Tobacco use type: Cigarette Cigarettes Per Day: 10 Years Smoked: 2015 Smoked in Last 30 Days: Yes e-Cigarette/Vaping Use: Never Used Patient Interested in Nicotine Replacement: No Have you been hit, kicked, punched, or otherwise hurt by someone within the past year? If so, by whom?: No Are you DNR?: No Advance Directives: No Advance Directives Information Provided: Yes Poor oral hygiene: No service: No Current occupational status: employed Current occupation: machinest Current occupational exposures/hazards: No Cognitive needs: No Hearing needs: No Vision needs: Yes Meds Allergies Allergy/AdvReac Type Severity Reaction Status Date / Time No Known Allergies Allergy Verified 01/02/25 09:10 Home Medications ?Medication ?Instructions ?Recorded ?Confirmed ?Last Taken ?Type buprenorphine 4 mg-naloxone 1 mg 1 film sublingual BALA LY 09/27/24 12/31/24 01/02/25 History sublingual film Exam Airway Mallampati Class: III TM Dist: >3cm Neck ROM: Full Loose/Missing/Broken Teeth: No Heart: RRR Lungs: CTA Assessment and Plan Assessment Anesthesia Assessment: Anesthesia Plan Discussed Final Anesthetic Review History of Problems with Anesthesia: No NPO: Yes ASA Class: II Final Preanesthetic Review: Meds/Allgs Chart Reviewed, Consent Obtained/Reviewed and Anes Risks/Benef Reviewed Patient Risk: Low Procedure Risk: Low Anesthetic Plan Anesthetic Plan: MAC: Disposition: Standard PACU
[2025-01-02 08:52] VITALS: BMI 24.5
[2025-01-02] MEDS: Lactated Ringers 1,000 ML 100 ML IVCONT (09:06)
[2025-01-02 09:09] VITALS: BP 135/85; PULSE 79; RESP 18; TEMP 36.7; O2SAT 98
--- NOTE | 2025-01-02 09:09 | MHC.SHP ---
Pre-Procedural Eval Section A - 24 Hr Update-Section A only Date of Service: 01/02/25 Section B - Complete if H&P > 30 days Chief Complaint: screening Relevant Family History (Specify if Yes): No Relevant Social History: Tobacco Use Present Medications: see Short Stay Collaborative assessment Medical History: Significant History (Change in stool habits Colon cancer screening) History of Previous Operations: Relevant previous surgery/procedure and date(s) ( S/P hernia repair History of surgery on lower extremity) Allergies: Allergies Allergy/AdvReac Type Severity Reaction Status Date / Time No Known Allergies Allergy Verified 09/27/24 15:12 Review of Systems Sugical H&P ROS: Negative: Constitution, Cardiovascular, Respiratory, Neurological, Psychiatric, Hem-Onc, Allergic/Immunologic, Gastrointestinal, Genitourinary, Musculoskeletal, Integumentary, Endocrine and Eyes/Ears/Nose/Throat Exam Surgical H&P Exam: Normal: HEENT, Normal: Heart, Normal: Lungs, Normal: Extremities, Normal: Abdomen, Normal: Skin and Normal: Neurological Plan Diagnosis/Plan: Unchanged I have reviewed the history and physical and performed a pertinent physical examination on my patient. No changes have occurred unless specified. Time Spent With Patient Time: Total time managing care of this patient today ____ minutes.
--- NOTE | 2025-01-02 10:07 | P.OPN-COLO_ITS ---
Colonoscopy Operative Note Operative Note Date of Service: 01/02/25 Narrative: Operative Information Procedure Description: Colonoscopy Indication: screening Anesthesia: MAC COLONOSCOPY Instrument: Olympus variable stiffness pediatric scope 190L Colonoscopy Monitoring: Vital signs and clinical assessment, continuous EKG monitoring, Pulse oximetry, Carbon Dioxide monitoring and blood pressure monitoring were done throughout the procedure. Colon withdrawal time was 10 minutes. Procedure: The patient was placed in the left lateral decubitis position and pre-procedure medications were administered. After a digital rectal examination of the ano-rectum, the video colonoscope was inserted into the rectum and advanced through the colon to the cecum/TI. The colonoscope was slowly withdrawn in a retrograde panoramic fashion and the colon mucosa was carefully examined including a retroflexed view of the rectum. Findings and interventions are described below. Procedure Difficulty: easy Findings: Terminal Ileum- bx taken Right sided colon bx taken and also from left coln and rectum Cecum:normal Ascending Colon: normal Transverse Colon -normal Descending Colon:normal Sigmoid Colon: distal patchy erythema and mucosal edema Rectum: Retroflexion with small internal hemorrhoids seen, grade I- severe proctitis with superficial ulcerations and friable mucosa with erythema, bx taken Anorectum - normal Intervention: cold forceps Colon preparation: Lynch Bowel Preparation Scale Right colon; 2 Transverse colon: 2 Left colon; 2 (0 = Unprepared colon segment with mucosa not seen due to solid stool that cannot be cleared. 1 = Portion of mucosa of the colon segment seen, but other areas of the colon segment not well seen due to staining, residual stool and/or opaque liquid. 2 = Minor amount of residual staining, small fragments of stool and/or opaque liquid, but mucosa of colon segment seen well. 3 = Entire mucosa of colon segment seen well with no residual staining, small fragments of stool or opaque liquid) Impression and Post Procedure Diagnosis: procto-sigmoiditis internal hemorrhoids Plan: High fiber diet leaflet Avoid straining at stool, epsom salts and sitz bath, anusol supps or cream Repeat Colonoscopy in 10 years or earlier if clinically indicated avoid nsaids commence mesalamine PO and enema Above findings were reviewed with the patient and relevant handouts were provided if indicated.
[2025-01-02 10:15] VITALS: BP 109/65; PULSE 60; RESP 16; TEMP 37; O2SAT 100
[2025-01-02 10:30] VITALS: BP 113/72; PULSE 55; RESP 16; TEMP 36.4; O2SAT 100
== END 2025-01-02 10:49 | disposition home or self-care (01) ==
PROVIDERS: PCP Internal Medicine; Visit Provider Internal Medicine Gastroenterology
PROC: 0DJD8ZZ Inspection of Lower Intestinal Tract, Via Natural or Artificial Opening Endoscopic (ICD-10-PCS; CPT 45378; principal; 2025-01-02 10:00)
DX: Z12.11 Encounter for screening for malignant neoplasm of colon (principal); K63.89 Other specified diseases of intestine; K64.0 First degree hemorrhoids; F11.20 Opioid dependence, uncomplicated; F17.210 Nicotine dependence, cigarettes, uncomplicated
CPT/HCPCS: 45380; 88305; J2704

== ENCOUNTER → 2025-01-02 08:18 | Outpatient (BNV) | payer BC, SELFPAY | PROVIDERS: PCP Internal Medicine; Visit Provider Internal Medicine Gastroenterology | DX: Z12.11 Encounter for screening for malignant neoplasm of colon (principal); K51.30 Ulcerative (chronic) rectosigmoiditis without complications; K64.0 First degree hemorrhoids | CPT/HCPCS: 45380 ==

== ENCOUNTER 2025-01-10 15:32 | Outpatient (AMB) | payer BC, SELFPAY ==
--- NOTE | 2025-01-10 15:40 | MHC.OFFVIS ---
Vital Signs 01/10/25 15:41 Height 6 ft 2 in Weight 191 lb BMI 24.5 BP 146/72 H Blood Pressure Location Lt brachial Position Sitting Pulse 69 Pulse Oximetry (%) 98 Oxygen Delivery Method Room Air Intake Visit Reasons: f/u ct enterography Intake Note: Patient follow f/u for Change in stool habits and CT enterography, lab/stool and Colonoscopy results. Patient denies any GI issues. Director Of Coding Required: No Accompanied by: Self / Same As Patient Allergies No Known Allergies Allergy (Verified 01/10/25 15:40) HPI HPI f/u ct enterography: Details: Patient is a 59-year-old male with PMH of nicotine dependence, opioid use disorder on Suboxone managed by [facility] F/u for persistent GI sx following dx of colonic inflammation involving rectum and sigmoid (per prior imaging and recent colonoscopy). Pt continues to experience loose stools with frequent mucus and occasional bright red blood, particularly during work hours. No significant reduction in stool number, but some perceived decrease in visible blood. Reports trial of dietary modification (minimizing processed food; one recent fast food meal without significant impact). Enema use challenging: unsure of complete dose delivery, significant discomfort, prefers oral mesalamine, but compliant with both forms and recently transitioned from suppositories to enema per Endoscopist instruction. Mood reportedly affected by GI sx, limiting participation in recreational activities; anticipates work-related stress due to mandatory overtime. No recent hospitalizations or urgent care visits. [facility] Medical History (Updated 01/10/25 @ 16:27 by Lashell Thakur CNP) Internal hemorrhoid Proctosigmoiditis Plantar fascia syndrome Elevated fecal calprotectin Change in stool habits Colon cancer screening Surgical History (Updated 01/10/25 @ 15:44 by Corinna Heredia) Hx of colonoscopy S/P hernia repair History of surgery on lower extremity Family History Mother No problems noted. Father No problems noted. Social History Housing: House Are you a primary school childcare attendant to a significant other at home: No Do you presently have visiting nurse or other home services: No Alcohol intake: current Alcohol intake frequency: holidays/special occasions only Patient Tobacco Use Status: Current everyday Tobacco user Tobacco use type: Cigarette Cigarettes Per Day: 10 Years Smoked: 2014 e-Cigarette/Vaping Use: Never Used service: No Current occupational status: employed Current occupation: machinest Current occupational exposures/hazards: No Cognitive needs: No Hearing needs: No Vision needs: Yes Review of Systems Const Reports as per HPI ENT Reports as per HPI Card Reports as per HPI Resp Reports as per HPI GI Reports as per HPI Reports as per HPI Physical Exam Vital Signs: Last Vital Signs Pulse 69 01/10/25 15:41 BP 146/72 H 01/10/25 15:41 Pulse Ox 98 01/10/25 15:41 Oxygen Delivery Method Room Air 01/10/25 15:41 BMI result Body Mass Index 24.5 Const General: healthy appearing, no acute distress and well developed Nutritional Appearance: average body habitus Orientation/consciousness: patient oriented x3 HEENT Head: Yes normal to inspection, Yes normocephalic and Yes atraumatic Face and sinus: Yes normal facial exam Eyes General: appearance normal, both eyes and all related structures Neck Neck: Yes normal visual inspection Resp Effort & Inspection: normal respiratory effort, able to speak in complete sentences, no tracheal deviation and symmetric chest movement Cardio Jugular venous distension: no JVD GI Inspection: Yes normal to inspection and No distended Palpation (GI): Soft to palpation, not firm, nontender and No hepatosplenomegaly present Neuro General: patient oriented x3 Gait exam (Neuro): Normal gait present Psych Appearance: grossly normal Mental Status: mental status grossly normal Speech and movement: Normal speech and movement present Affect: normal affect Attitude: cooperative Thought process: Normal thought process present Thought content: Normal thought content present Insight: Good insight present (Psych) Judgement: Good judgement present (Psych) Assessment & Plan Assessment & Plan (1) Proctosigmoiditis: Code(s): K63.89 - Other specified diseases of intestine Category: Medical Plan: Insufficient trial (<1 wk) of current therapy; inflammation longstanding; enema use imperfect?potential subtherapeutic delivery, pt prefers oral/less frequent rectal dosing. Additional Testing: - None at this time; consider repeat labs if no improvement at 2-3 wks (e.g., CRP, fecal calprotectin). Medications: - Continue mesalamine PO 1.5g daily (4 caps as directed). - Continue mesalamine enema qHS; pt instructed to administer as tolerated, maximizing retention, shaking well, lying L lateral, lubricate tip. - No change to current regimen; if no response in 1-2 wks, consider increase to oral dose (up to 3.6?4.8g/d) or change rectal formulation (back to bid suppositories if feasible). - PRN Metamucil for bulking if beneficial and well-tolerated. - Stool softener only if needed for hard stools. Lifestyle Recommendations: - Balanced, whole-foods diet; minimize processed, fried, high-fat foods; avoid ETOH. - Fiber intake: liberalize if well-tolerated; use Metamucil/stool softener PRN. - Optimize hydration; continue monitoring for dietary triggers. - Stress management encouraged. - Provided verbal education; consider handouts if needed. Referrals / Coordination: - FMLA paperwork to be brought to next visit for completion. F/U Plan: - RTC in 3 wks or earlier if worsening sx; monitor for increase stool frequency/blood, improved consistency. - If no response or intolerable sx, discuss med titration or formulation change. (2) Internal hemorrhoid: Code(s): K64.8 - Other hemorrhoids Category: Medical Plan: Intermittent small-volume hematochezia; attributed to hemorrhoids (per scope). Management: - Conservative measures: avoid constipation/straining, continue fiber as tolerated. - Monitor for increase bleeding or sx. Plan Follow-up in 3 weeks or sooner as needed Time: I spent a total of 40 minutes on the date of encounter which includes: Preparing to see the patient (reviewed previous documentation, test results and medical history) Performing a medically appropriate exam and/or evaluation Ordering medications, tests, and procedures Documenting clinical information in the health record Coding Level of Care Code Established Pt Est Pt Level 5 (49172) Patient Type Established Diagnoses Proctosigmoiditis K63.89 Internal hemorrhoid K64.8
[2025-01-10 15:41] VITALS: BP 146/72; PULSE 69; O2SAT 98; BMI 24.5
== END 2025-01-10 16:19 | disposition home or self-care (01) ==
LOC: HO.HGI 15:33
PROVIDERS: PCP Internal Medicine; Visit Provider Nurse Practitioner Family
DX: K63.89 Other specified diseases of intestine (principal); K64.8 Other hemorrhoids
CPT/HCPCS: 99215

== ENCOUNTER 2025-01-31 12:14 | Outpatient (AMB) | payer BC, SELFPAY ==
--- OUTSIDE RECORDS SUMMARY | 2024-02-20 09:00 | XMS_ITS ---
Author Organization [facility] Address [address] [place] [address] Care Team Providers Care Manufacturing Maintenance Technician Name Role Phone Nell Domínguez Primary Care Provider Unavailabl Clifton Brasher Unavailable [phone] Encounters Encounter Location Date Provider Diagnosis [address] [address] 02/20/2024 Clifton Quijano Plan Of Treatment No Information Progress Notes * Tre HEATONZanaOB:1965 ( 59 yo M)Acc No.[id number]:02/20/2024 Progress Notes Patient: Camilo OLIVARES Provider: Garrick Quijano DPM :1965 A ge:58 Y S ex:Male Date:02/20/2024 Address:[address] Pcp:Nell Domínguez Subjective: * Chief Complaints: * [...] Date: 04/21/2023 Generated for Jeannette sandoval/Christiano/Bel on: 01:43 PM EDT
[2025-01-31 12:24] VITALS: BP 133/74; PULSE 71; BMI 24.6
--- NOTE | 2025-01-31 12:24 | MHC.OFFVIS ---
Vital Signs 01/31/25 12:24 Height 6 ft 2 in Weight 191 lb 12.835 oz BMI 24.6 BP 133/74 Blood Pressure Location Lt brachial Position Sitting Pulse 71 Intake Visit Reasons: 3wks fmla paperwork Intake Note: Camilo presents in the office as a 3 week follow up. CC: no concerns today. Rv Repairer Required: No Allergies No Known Allergies Allergy (Verified 01/10/25 15:40) HPI HPI 3wks fmla paperwork: Details: Patient is a 59-year-old male with PMH of nicotine dependence, opioid use disorder on Suboxone managed by [facility]. FU to complete FMLA paperwork for ongoing GI condition. Pt reports persistent bowel issues, concern re: dosage of maintenance medication, and intermittent work-related functional impairment. Pt remains symptomatic with variable loose stools and episodes of ?wet air? BM, though reports that rectal bleeding has reduced but not resolved completely. Constipated at times, particularly after dietary modifications (noted increased use of ?white diet?/low-residue foods). Pt experiences transactional BM pattern: urge occurs typically after meals and upon returning home from work; often has successive trips to bathroom. Fatigue persists, especially leg exhaustion following work shifts. Pt adheres to oral mesalamine regimen at lowest dose; reports difficulty with effectiveness and administration of rectal enema therapy. Has used vacation days for symptom-related absences, and desires clarity in FMLA documentation re: inability to work overtime and need for periodic leave. No recent hospitalizations or acute flares. [facility] Medical History Internal hemorrhoid Proctosigmoiditis Plantar fascia syndrome Elevated fecal calprotectin Change in stool habits Colon cancer screening Surgical History Hx of colonoscopy S/P hernia repair History of surgery on lower extremity Family History Mother No problems noted. Father No problems noted. Social History Housing: House Are you a primary care transitions nurse to a significant other at home: No Do you presently have visiting nurse or other home services: No Alcohol intake: current Alcohol intake frequency: holidays/special occasions only Patient Tobacco Use Status: Current everyday Tobacco user Tobacco use type: Cigarette Cigarettes Per Day: 10 Years Smoked: 2015 e-Cigarette/Vaping Use: Never Used service: No Current occupational status: employed Current occupation: machinest Current occupational exposures/hazards: No Cognitive needs: No Hearing needs: No Vision needs: Yes Review of Systems Const Reports as per HPI ENT Reports as per HPI Card Reports as per HPI Resp Reports as per HPI GI Reports as per HPI Reports as per HPI Physical Exam Vital Signs: Last Vital Signs Pulse 71 01/31/25 12:24 BP 133/74 01/31/25 12:24 BMI result Body Mass Index 24.6 Const General: healthy appearing, no acute distress and well developed Nutritional Appearance: average body habitus Orientation/consciousness: patient oriented x3 HEENT Head: Yes normal to inspection, Yes normocephalic and Yes atraumatic Face and sinus: Yes normal facial exam Eyes General: appearance normal, both eyes and all related structures Neck Neck: Yes normal visual inspection Resp Effort & Inspection: normal respiratory effort, able to speak in complete sentences, no tracheal deviation and symmetric chest movement Cardio Jugular venous distension: no JVD GI Auscultation: normal bowel sounds Neuro General: patient oriented x3 Gait exam (Neuro): Normal gait present Psych Appearance: grossly normal Mental Status: mental status grossly normal Speech and movement: Normal speech and movement present Affect: normal affect Attitude: cooperative Thought process: Normal thought process present Thought content: Normal thought content present Insight: Good insight present (Psych) Judgement: Good judgement present (Psych) Results Reviewed Results Reviewed: 01/02/25 Colonoscopy complete with adequate- procto-sigmoiditis, internal hemorrhoids Operative Note Date of Service: 01/02/25 Narrative: Operative Information Procedure Description: Colonoscopy Indication: screening Anesthesia: MAC COLONOSCOPY Instrument: Olympus variable stiffness pediatric scope 190L Colonoscopy Monitoring: Vital signs and clinical assessment, continuous EKG monitoring, Pulse oximetry, Carbon Dioxide monitoring and blood pressure monitoring were done throughout the procedure. Colon withdrawal time was 10 minutes. Procedure: The patient was placed in the left lateral decubitis position and pre-procedure medications were administered. After a digital rectal examination of the ano-rectum, the video colonoscope was inserted into the rectum and advanced through the colon to the cecum/TI. The colonoscope was slowly withdrawn in a retrograde panoramic fashion and the colon mucosa was carefully examined including a retroflexed view of the rectum. Findings and interventions are described below. Procedure Difficulty: easy Findings: Terminal Ileum- bx taken Right sided colon bx taken and also from left coln and rectum Cecum:normal Ascending Colon: normal Transverse Colon -normal Descending Colon:normal Sigmoid Colon: distal patchy erythema and mucosal edema Rectum: Retroflexion with small internal hemorrhoids seen, grade I- severe proctitis with superficial ulcerations and friable mucosa with erythema, bx taken Anorectum - normal Intervention: cold forceps Colon preparation: [place] Bowel Preparation Scale Right colon; 2 Transverse colon: 2 Left colon; 2 (0 = Unprepared colon segment with mucosa not seen due to solid stool that cannot be cleared. 1 = Portion of mucosa of the colon segment seen, but other areas of the colon segment not well seen due to staining, residual stool and/or opaque liquid. 2 = Minor amount of residual staining, small fragments of stool and/or opaque liquid, but mucosa of colon segment seen well. 3 = Entire mucosa of colon segment seen well with no residual staining, small fragments of stool or opaque liquid) Impression and Post Procedure Diagnosis: procto-sigmoiditis internal hemorrhoids Plan: High fiber diet leaflet Avoid straining at stool, epsom salts and sitz bath, anusol supps or cream Repeat Colonoscopy in 10 years or earlier if clinically indicated avoid nsaids commence mesalamine PO and enema Above findings were reviewed with the patient and relevant handouts were provided if indicated. Date of Service: 12/03/24 Procedure(s): CT enterography Accession Number(s): [id number] cc: Ana Lilia Montoya MD; Lashell Thakur CNP~ Report Number: [id number]: Total DLP = 924.00 mGy-cm Reason for Exam: R19.5 - Other fecal abnormalities ADDENDUM This document has been electronically signed by: Nerissa Chowdary MD on 12/04/2024 15:07:19 ADDENDUM: Receipt of this report by the clinical staff was confirmed with Yumiko Villafuerte MA on Dec 04, 2024 15:22:00 EDT. This document has been electronically signed by: Lila Calvillo on 12/04/2024 15:23:02 Addendum Dictated By: Nerissa Chowdary MD Addendum Signed By: <Electronically signed by Nerisas Chowdary MD in [place]> 12/04/241522 Addendum Cosigned By: DD/ /25/1506 TD/TT: 12/04/2406/25/1522 CLINICAL HISTORY: R19.5 - Other fecal abnormalities --- Additional Notes or Special Instructions: eval for evidence of IBDIntermittent rectal bleeding and stool change w chronic constipation, evaluate for irritable bowel disease Exam: CT enterography with IV contrast Comparison: None Findings: Mild bibasilar dependent atelectasis. Stomach, small bowel and appendix are unremarkable. Diffuse edematous mural thickening with laminated enhancement of the rectum, mesorectal fatty stranding, several prominent spherical mesorectal lymph nodes up to 8 mm, small amount of liquid stool in the rectum, no upstream bowel dilatation to suggest obstruction. Mild diverticulosis sigmoid, no acute diverticulitis. Prominent inspissated stool from cecum to the descending colon, no mural thickenin. Scattered too small to characterize hypodensities in the liver, patent hepatic and portal veins. Punctate calcification of the gallbladder anterior wall. No convincing cholelithiasis, no acute inflammation. Spleen, pancreas, adrenal glands, kidneys, ureters, bladder, reproductive organs are unremarkable. Too small to characterize hypodensities of the right kidney. Mild atherosclerotic disease. Nonaneurysmal aorta. No bulky lymph nodes. Multiple shotty retroperitoneal lymph nodes, likely reactive. No ascites or pneumoperitoneum. Presacral edema. Left proximal femur old fracture status post ORIF, no acute hardware complication. Mild degenerative changes of the lumbar spine and hips. Multilevel vertebral hemangiomas L3, L4, L5, L1 and T10. Osseous demineralization. Impression: 1. Diffuse rectal wall thickening, mesorectal fatty stranding and prominent mesorectal lymph nodes, most likely acute proctitis, could be infectious or inflammatory, recommend to ensure resolution and colonoscopy to exclude underlying lesion. 2. Additional ancillary findings. Assessment & Plan Assessment & Plan (1) Proctosigmoiditis: Code(s): K63.89 - Other specified diseases of intestine Category: Medical Plan: Stable-moderately active; rectal bleeding improved; intermittent constipation and urgency; incomplete remission on lowest PO mesalamine dose; leg fatigue continues. Rectal enema to continue for distal inflammation coverage. Additional testing: - None recommended at present; monitor response and reassess need for repeat labs or imaging at next FU. Medications: - Increase mesalamine PO to 2.4g daily (2 tabs BID), generic. Continue nightly rectal enema as tolerated;maximizing retention, shaking well, lying L lateral, lubricate tip. - Duration: 8 weeks, then reassess. - Monitor: GI sx, blood per rectum, constipation; advise titration of Miralax prn for hard stools. - Will consider addition of oral systemic corticosteroids (budesonide 9mg/day) if no response at follow up Lifestyle Recommendations: - Continue balanced diet; avoid excessive low-residue foods to prevent constipation. Individualize dietary choices per symptom profile. Titrate Miralax to bowel habit. - Provided verbal education re: dietary options?noted no evidence-based UC diet, avoid constipation-inducing regimens. Referrals / Coordination of Care: - [place] paperwork completed for intermittent leave and restriction from mandatory overtime per pt report and functional impairment. Follow-Up Plan: - FU in 8 weeks for symptom and medication response assessment; sooner prn flare or increased bleeding/constipation. Track BM pattern, fatigue, missed work days, and side effects; consider repeat colonoscopy or labs if condition worsens. Plan Follow-up in 8 weeks or sooner as needed Time: I spent a total of 45 minutes on the date of encounter which includes: Preparing to see the patient (reviewed previous documentation, test results and medical history) Performing a medically appropriate exam and/or evaluation Ordering medications, tests, and procedures Documenting clinical information in the health record Medications: New mesalamine (Lialda) Take two tablets daily 2.4 grams (2 x 1.2 gram) PO DAILY 112 tabs 0RF 8 weeks Discontinued mesalamine ER (Apriso) Discontinued Reason: Doctor's Order 1.5 grams (4 x 0.375 gram) PO DAILY 240 caps 1RF Coding Level of Care Code Established Pt Est Pt Level 5 (11914) Patient Type Established Diagnoses Proctosigmoiditis K63.89
--- OUTSIDE RECORDS SUMMARY | 2025-01-31 13:43 | XMS_ITS | Patient Health Record ---
Author Organization [facility] Address [address] [place] [address] Care Team Providers Care Gear Changer Name Role Phone Nell Domínguez Primary Care Provider Clifton Garcia Unavailable [phone] Reason For Referral No Information Plan Of Treatment No Information Insurance Providers Payer Name Payer Address Payer Phone Subscriber Number Group Number Insured Name Patient Relationship to Insured Coverage Start Date Coverage End Date [facility] [employer] [address] [place] [address] [phone] [id number] 1 Camilo Steele Self - patient is the insured
== END 2025-01-31 13:17 | disposition home or self-care (01) ==
LOC: HO.HGI 12:15
PROVIDERS: PCP Internal Medicine; Visit Provider Nurse Practitioner Family
DX: K63.89 Other specified diseases of intestine (principal)
CPT/HCPCS: 99215

== ENCOUNTER 2025-03-28 09:50 | Outpatient (AMB) | payer BC, SELFPAY ==
--- OUTSIDE RECORDS SUMMARY | 2024-02-20 08:00 | XMS_ITS ---
Author Organization [facility] Address [address] [place] [address] Care Team Providers Care Catalytic Case Operator Name Role Phone Nell Domínguez Primary Care Provider Unavailabl Clifton Brasher Unavailable [phone] Encounters Encounter Location Date Provider Diagnosis [address] [address] 02/20/2024 Clifton Quijano Plan Of Treatment No Information Progress Notes * Tre HEATONZanaOB:1965 ( 59 yo M)Acc No.[id number]:02/20/2024 Progress Notes Patient: Camilo OLIVARES Provider: Garrick Quijano DPM :1965 A ge:58 Y S ex:Male Date:02/20/2024 Address:[address], [place] Pcp:Nell Domínguez Subjective: * Chief Complaints: * [...] Date: 04/21/2023 Generated for Jeannette sandoval/Christiano/Bel on: 05/29/2024 09:54 AM EST
--- NOTE | 2025-03-28 09:53 | A.OFFVIS_ITS ---
Vital Signs 03/28/25 09:54 Height 6 ft 2 in Weight 189 lb BMI 24.3 BP 127/65 Blood Pressure Location Lt brachial Position Sitting Pulse 73 Intake Visit Reasons: follow up U/C Intake Note: Patient follow up for U/C. Patient cc: between diarrhea and constipation on and off. Devops Required: No Accompanied by: Self / Same As Patient Allergies No Known Allergies Allergy (Verified 03/28/25 09:53) HPI HPI follow up U/C: Details: Patient is a 59-year-old male with PMH of nicotine dependence, opioid use disorder on Suboxone managed by Saranya kevin. Follow-up management of his inflammatory bowel disease. He is currently managed with both oral mesalamine, with a recent dose increase to 2.4 g per day, and mesalamine enemas. Despite the increased dose, he reports no significant change in his symptoms. He describes his morning bowel movements as a drizzle and reports frequent episodes of wet flatus throughout the day at work, sometimes occurring up to four times. He experiences fecal urgency, which causes him anxiety about daily activities such as going to the dentist or getting a haircut. He also notes intermittent hematochezia, with some days having blood in the stool and others not. The patient reports that his symptoms, particularly gas, worsen after eating, regardless of the food consumed. The patient reports constipation, which he thinks may be related to either the increased mesalamine dose or his trial of kefir. He also reported an episode at work on February 11 where he felt hot, sweaty, and presyncopal, which resolved after eating a banana. Following this, a coworker checked his blood sugar daily for two weeks, with results ranging from 100 to 134. Shares [facility] paperwork was accepted by employer. IBD SUMMARY: YEAR OF DIAGNOSIS: 2024 DISEASE EXTENT: procto-sigmoiditis, LAST COLONOSCOPY FINDINGS:01/02/25 Colonoscopy complete with adequate prep - procto-sigmoiditis, internal hemorrhoids NEXT COLON DUE: 8-10 years EXTRAINTESTINAL MANIFESTATIONS: GI SURGERY: NA PAST TREATMENTS: NA CURRENT THERAPY: Mesalamine p.o. and enemas VACCINATIONS (mean no live vaccines): Flu shot: Jan 2025 COVID shot: Due Hep A/B serology /vaccination: Due TB screen: pneumonia (PVC 20 or 21 recommended): Due Tetanus/Tdap: due Shingrix :due [facility] Medical History (Updated 03/28/25 @ 10:58 by Lashell Thakur CNP) Encounter for immunization Internal hemorrhoid Proctosigmoiditis Plantar fascia syndrome Elevated fecal calprotectin Change in stool habits Colon cancer screening Surgical History Hx of colonoscopy S/P hernia repair History of surgery on lower extremity Family History Mother No problems noted. Father No problems noted. Social History Housing: House Are you a primary director of home care hospice to a significant other at home: No Do you presently have visiting nurse or other home services: No Alcohol intake: current Alcohol intake frequency: holidays/special occasions only Patient Tobacco Use Status: Current everyday Tobacco user Tobacco use type: Cigarette Cigarettes Per Day: 10 Years Smoked: 2014 e-Cigarette/Vaping Use: Never Used service: No Current occupational status: employed Current occupation: machinest Current occupational exposures/hazards: No Cognitive needs: No Hearing needs: No Vision needs: Yes Review of Systems Const Reports as per HPI ENT Reports as per HPI Card Reports as per HPI Resp Reports as per HPI GI Reports as per HPI Reports as per HPI Physical Exam Vital Signs: Last Vital Signs Pulse 73 03/28/25 09:54 BP 127/65 03/28/25 09:54 BMI result Body Mass Index 24.3 Const General: healthy appearing, no acute distress and well developed Nutritional Appearance: average body habitus Orientation/consciousness: patient oriented x3 HEENT Head: Yes normal to inspection, Yes normocephalic and Yes atraumatic Face and sinus: Yes normal facial exam Eyes General: appearance normal, both eyes and all related structures Neck Neck: Yes normal visual inspection Resp Effort & Inspection: normal respiratory effort, able to speak in complete sentences, no tracheal deviation and symmetric chest movement Cardio Jugular venous distension: no JVD GI Inspection: Yes normal to inspection and No distended Palpation (GI): Soft to palpation, not firm, nontender and No hepatosplenomegaly present Auscultation: normal bowel sounds Neuro General: patient oriented x3 Gait exam (Neuro): Normal gait present Psych Appearance: grossly normal Mental Status: mental status grossly normal Speech and movement: Normal speech and movement present Affect: normal affect Attitude: cooperative Thought process: Normal thought process present Thought content: Normal thought content present Insight: Good insight present (Psych) Judgement: Good judgement present (Psych) Immunizations Engerix-B (PF) 20 mcg/mL intramuscular suspension Performing Provider: Lashell Thakur CNP Performing Location: [facility] Administered by: Valarie Savage RN on 03/28/25 10:43 Dose Route Admin Location Dispensed Lot Number Expiration Date [facility] [employer] 1 mL IM Left Deltoid 1 mL [id number] 04/18/27 16094-338-97 [employer] Total Dispensed Waste 1 mL 0 % VIS Given Date VIS Provided VIS Publication Date 03/28/25 Single Vaccine 22 Eligibility Eligibility Date Funding Source Not [facility] Eligible 03/28/25 Private Assessment & Plan Assessment & Plan (1) Proctosigmoiditis: Code(s): K63.89 - Other specified diseases of intestine Category: Medical Plan: The patient's symptoms of inflammatory bowel disease are persisting despite an increased dose of oral mesalamine to 2.4 g/day. - To induce remission, a course of budesonide MMX 9 mg once daily in the morning will be initiated for approximately 8 weeks. - He is to continue his current regimen of oral mesalamine and mesalamine enemas. - A refill for mesalamine was sent to the pharmacy. - Stool studies will be repeated to check inflammatory markers. - A low-FODMAP diet guide was provided to help identify dietary triggers. - Follow-up is scheduled in 8 weeks, with a portal check-in at the 4-week cory, and he is to follow up sooner if needed. (2) Encounter for immunization: Code(s): Z23 - Encounter for immunization Category: Medical Plan: Given his diagnosis of IBD and the initiation of steroid therapy, it is important to ensure he is up to date on vaccinations. - Serology testing from June confirmed he does not have immunity to hepatitis B. - The first dose of the 3-dose hepatitis B vaccine series was administered in the office. - Recommendations were made for him to receive the COVID-19, pneumonia (Prevnar 20), tetanus, and shingles (Shingrix) vaccines. - He was advised that these can be obtained from his primary care physician or a local pharmacy. - A TB screen was also recommended. - He was instructed that no live vaccines should be administered. - He is up to date on his flu vaccine, which he received in January. Plan Time: I spent a total of 30 minutes on the date of encounter which includes: Preparing to see the patient (reviewed previous documentation, test results and medical history) Performing a medically appropriate exam and/or evaluation Ordering medications, tests, and procedures Documenting clinical information in the health record Orders: Orders Hepatitis B Adult Immunization Today Z23 - Encounter for immunization Comprehensive [place]. Panel Fast Today K63.89 - Other specified diseases of intestine Calprotectin, Fecal Today K63.89 - Other specified diseases of intestine C Reactive Protein Today K63.89 - Other specified diseases of intestine Complete Blood Count Auto Diff Today K63.89 - Other specified diseases of intestine Medications: New budesonide DR-ER Take three tablet daily for 8 weeks. Administer in the morning without regard to meals. 9 mg (3 x 3 mg) PO QAM 168 ea 0RF 8 weeks Changed From mesalamine (Lialda) Take two tablets daily 2.4 grams (2 x 1.2 gram) PO DAILY 8 weeks 112 tabs 0RF To mesalamine (Lialda) Take two tablets daily 2.4 grams (2 x 1.2 gram) PO DAILY 60 tabs 2RF 30 days Refilled mesalamine (sfRowasa) 4 grams (60 mL) OR BEDTIME 1,680 mL 2RF Coding Level of Care Code Established Pt Est Pt Level 4 (39648) Patient Type Established Diagnoses Proctosigmoiditis K63.89 Encounter for immunization Z23
[2025-03-28 09:54] VITALS: BP 127/65; PULSE 73; BMI 24.3
--- OUTSIDE RECORDS SUMMARY | 2025-03-28 09:55 | XMS_ITS | Patient Health Record ---
[facility] Address [address] [place] [address] Care Team Providers Care Dog Hair Clipper Name Role Phone Nell Domínguez Primary Care Provider Clifton Garcia Unavailable [phone] Reason For Referral No Information Plan Of Treatment No Information Insurance Providers Payer Name Payer Address Payer Phone Subscriber Number Group Number Insured Name Patient Relationship to Insured Coverage Start Date Coverage End Date [facility] All Others [address] [place] [address] [phone] [id number] Camilo Steele Self - patient is the insured
== END 2025-03-28 10:43 | disposition home or self-care (01) ==
LOC: HO.HGI 09:51
PROVIDERS: PCP Internal Medicine; Visit Provider Nurse Practitioner Family
DX: K63.89 Other specified diseases of intestine (principal); Z23 Encounter for immunization
CPT/HCPCS: 99214

== ENCOUNTER → 2025-03-28 09:50 | Outpatient (BNVA) | payer BC, SELFPAY | PROVIDERS: PCP Internal Medicine; Visit Provider Nurse Practitioner Family | DX: K63.89 Other specified diseases of intestine (principal); Z23 Encounter for immunization; Z79.899 Other long term (current) drug therapy | CPT/HCPCS: 90471; 90746 ==

== ENCOUNTER 2025-04-01 11:43 | Outpatient (REF) | payer BC, SELFPAY ==
--- OUTSIDE RECORDS SUMMARY | 2024-02-20 08:00 | XMS_ITS ---
Author Organization [facility] Address [address] [place] [address] Care Team Providers Care Ballet Teacher Name Role Phone Nell Domínguez Primary Care Provider Unavailabl Clifton Brasher Unavailable [phone] Encounters Encounter Location Date Provider Diagnosis [address] [address] 02/20/2024 Clifton Quijano Plan Of Treatment No Information Progress Notes * Tre HEATONZanaOB:1965 ( 59 yo M)Acc No.[id number]:02/20/2024 Progress Notes Patient: Camilo OLIVARES Provider: Garrick Quijano DPM :1965 A ge:58 Y S ex:Male Date:02/20/2024 [address] [place] Pcp:Nell Domínguez Subjective: * Chief Complaints: * * Medical History: Objective: * Vitals: Assessment: Plan: * Treatment: * Images: * The named appointment provid er may or may not be the originator of this progress note, and it is not deemed complete until electronically signed by the appointment provider. Sign off status: Pending * Provider: Garrick Quijano DPM Date: 04/21/2023 Generated for Jeannette sandoval/Christiano/Bel on: 03:47 PM EST
--- OUTSIDE RECORDS SUMMARY | 2025-04-01 15:47 | XMS_ITS | Patient Health Record ---
Author Organization [facility] Address [address] [place] [address] Care Team Providers Care Pupil Personnel Services Director Name Role Phone Nell Domínguez Primary Care Provider Clifton Garcia Unavailable [phone] Reason For Referral No Information Plan Of Treatment No Information Insurance Providers Payer Name Payer Address Payer Phone Subscriber Number Group Number Insured Name Patient Relationship to Insured Coverage Start Date Coverage End Date [facility] All Others [address] [place] [address] [id number] Camilo Steele Self - patient is the insured
== END 2025-04-01 11:44 ==
LOC: HO.HMGCLDS 11:43
PROVIDERS: Absent Provider Nurse Practitioner Family; PCP Internal Medicine; Visit Provider Internal Medicine
DX: Z00.00 Encounter for general adult medical examination without abnormal findings (principal); K63.89 Other specified diseases of intestine; Z11.3 Encounter for screening for infections with a predominantly sexual mode of transmission
CPT/HCPCS: 36415; 83993; 86481